=== PATIENT | male | born 1990 | race Caucasian/White ===

== ENCOUNTER 2017-01-31 15:17 | Emergency (ER) | payer SELFPAY | END 2017-01-31 15:49 | disposition home or self-care (01) | LOC: ERS 15:17 | DX: L02.413 Cutaneous abscess of right upper limb (principal) | CPT/HCPCS: 10060 ==

== ENCOUNTER 2020-01-31 09:56 | Emergency (ER) | payer SELFPAY | END 2020-01-31 10:56 | disposition home or self-care (01) | LOC: ERS 09:56 | DX: K02.9 Dental caries, unspecified (principal); K03.81 Cracked tooth | CPT/HCPCS: 99282 ==

== ENCOUNTER 2021-01-10 22:42 | Emergency (ER) | payer SELFPAY ==
[2021-01-10] MEDS ORDERED: predniSONE 20 MG TAB ONE (23:33)
== END 2021-01-11 00:49 | disposition home or self-care (01) ==
LOC: ERS 22:42
DX: J20.9 Acute bronchitis, unspecified (principal); F17.210 Nicotine dependence, cigarettes, uncomplicated
CPT/HCPCS: 94640; J7512; J7620